=== PATIENT | male | born 1940 | race Caucasian/White ===

== ENCOUNTER 2016-07-07 08:57 | Emergency (ER) | payer MEDICARE ==
[2016-07-07 09:40] VITALS: BP 123/69
--- NOTE | 2016-07-07 10:57 | UC ---
Respiratory Complaint HPI - HPI Summary HPI Summary: The patient comes in today for: 1. Body aches, rhinitis, fatigue: Onset: two days ago. Palliative/provocative: Nothing makes his symptoms better; moving around makes the muscle aches worse. Quality: Aching. Region: General body. Severity:2/10 Time: Constant. Associated symptoms: Previous home treatment: Aleve did not help. Fevers: No temperature taken, but chills present. Rhinitis: Yellow, thick. Sinus pressure: Present. Cough: "Once in a while." Upper tooth pain: NOne. Chest pain: None. Dyspnea: None. * - History of Current Complaint Chief Complaint: UCGeneralIllness Stated Complaint: ACHY/HEADACHE/WEAK/SINUS Time Seen by Provider: 07/07/16 10:51 Hx Obtained From: Patient - Allergies/Home Medications Allergies/Adverse Reactions: Allergies Allergy/AdvReac Type Severity Reaction Status Date / Time Ciprofloxacin [From Cipro] Allergy Intermediate RASH, Verified 07/07/16 09:32 ITCHING Sulfa Antibiotics Allergy See Comment Verified 07/07/16 09:32 Home Medications: Home Medications Ibuprofen TAB* [Advil TAB*] 200 mg PO Q6H PRN 07/07/16 [History Confirmed ] PMH/Surg Hx/FS Hx/Imm Hx Previously Healthy: Yes Endocrine History Of: Denies: Diabetes, Thyroid Disease, Hyperthyroidism, Hypothyroidism, Dyslipidemia Cardiovascular History Of: Reports: Hypertension - HAS BEEN UP AND DOWN,NO MEDS Denies: Cardiac Disorders, Pacemaker/ICD, Myocardial Infarction, Congestive Heart Failure, Atrial Fibrillation, Deep Vein Thrombosis, Bleeding Disorders Respiratory History Of: Denies: COPD, Asthma, Bronchitis, Pneumonia, Pulmonary Embolism GI/ History Of: Denies: Gastroesophageal Reflux, Ulcer, Gastrointestinal Bleed, Gall Bladder Disease, Kidney Stones, Diverticulitis, Renal Disease, Urosepsis Neurological History Of: Denies: TIA, CVA, Dementia, Seizures, Migraine Psychological History Of: Denies: Anxiety, Depression, Bipolar Disorder, Schizophrenia, Post Traumatic Stress Disorder Cancer History Of: Denies: Lung Cancer, Colorectal Cancer, Breast Cancer, Prostate Cancer, Cervical Cancer Other History Of: Negative For: HIV, Hepatitis B, Hepatitis C, Anticoagulant Therapy - Surgical History Surgical History: Yes Surgery Procedure, Year, and Place: 1948 - Family History Known Family History: Negative: Cardiac Disease, Hypertension - Social History Occupation: Employed Full-time Alcohol Use: None Substance Use Type: None Smoking Status (MU): Former Smoker Type: Smokeless Tobacco When Did the Patient Quit Smoking/Using Tobacco: 45 YRS AGO - Immunization History Most Recent Influenza Vaccination: has not had Review of Systems Constitutional: Negative Skin: Negative Eyes: Negative ENT: Sore Throat, Nasal Discharge Respiratory: Cough Cardiovascular: Negative Gastrointestinal: Negative Genitourinary: Negative All Other Systems Reviewed And Are Negative: Yes Physical Exam Triage Information Reviewed: Yes Appearance: Well-Appearing, No Pain Distress, Thin Vital Signs: Initial Vital Signs Temp 98.8 F 07/07/16 09:34 Pulse 73 07/07/16 09:34 Resp 20 07/07/16 09:34 BP 123/69 07/07/16 09:34 Pulse Ox 97 07/07/16 09:34 Vital Signs Reviewed: Yes Eyes: Positive: Conjunctiva Clear. Negative: Discharge ENT: Positive: Hearing grossly normal. Negative: Pharyngeal erythema, Nasal congestion, Nasal drainage, TM bulging, TM dull, TM red, Tonsillar swelling, Tonsillar exudate Dental: Positive: Other: - Upper dentures, but worn, darkened teeth.. Negative : Gross Decay/Caries @, Dental Fracture @ Neck: Positive: Supple, Nontender, No Lymphadenopathy. Negative: Nuchal Rigidity Respiratory: Positive: Chest non-tender, Lungs clear, No respiratory distress, No accessory muscle use. Negative: Crackles, Wheezing Cardiovascular: Positive: RRR, No Murmur Abdomen Description: Positive: Nontender, No Organomegaly, Soft. Negative: Distended, Guarding Musculoskeletal: Positive: Strength Intact, ROM Intact Neurological: Positive: Alert, Muscle Tone Normal Psychological: Positive: Age Appropriate Behavior, Consolable Skin: Negative: rashes, breakdown UC Diagnostic Evaluation - Laboratory O2 Sat by Pulse Oximetry: 97 Respiratory Course/Dx - Differential Dx/Diagnosis Differential Diagnosis/HQI/PQRI: Asthma, Laryngitis, Sinusitis Provider Diagnoses: Sinusitis. Viral syndrome Discharge - Discharge Plan Condition: Stable Disposition: HOME Patient Education Materials: Sinusitis (ED), Viral Syndrome (ED) Referrals: Non Staff,Doctor [Primary Care Provider] - 1 Week (Please see your primary care provider in about a week to see how well you are doing. If you get worse, please be seen sooner.)
== END 2016-07-07 11:15 | disposition home or self-care (01) ==
LOC: UCCORT 08:57
DX: J32.9 Chronic sinusitis, unspecified (principal); B34.9 Viral infection, unspecified; Z88.3 Allergy status to other anti-infective agents; Z88.2 Allergy status to sulfonamides
CPT/HCPCS: 87502; 99212; G0463

== ENCOUNTER 2016-07-25 12:26 | Emergency (ER) | payer MEDICARE ==
[2016-07-25 14:21] VITALS: BP 136/78
--- NOTE | 2016-07-25 14:44 | UC ---
Throat Pain/Nasal Wilfred HPI - HPI Summary HPI Summary: complaint of nasal discharge, congestion and cough started 3 weeks ago cough with yellow sputum intermittent headaches constant pressure in forehead denies sore throat denies shortness of breath denies fever using alkaseltzer with some relief - History of Current Complaint Chief Complaint: UCRespiratory Stated Complaint: SINUS COMPLAINT Time Seen by Provider: 07/25/16 14:36 Hx Obtained From: Patient - Allergies/Home Medications Allergies/Adverse Reactions: Allergies Allergy/AdvReac Type Severity Reaction Status Date / Time Ciprofloxacin [From Cipro] Allergy Intermediate RASH, Verified 07/25/16 14:20 ITCHING Sulfa Antibiotics Allergy See Comment Verified 07/25/16 14:20 PMH/Surg Hx/FS Hx/Imm Hx Previously Healthy: Yes Endocrine History Of: Denies: Diabetes, Thyroid Disease, Hyperthyroidism, Hypothyroidism, Dyslipidemia Cardiovascular History Of: Reports: Hypertension - HAS BEEN UP AND DOWN,NO MEDS Denies: Cardiac Disorders, Pacemaker/ICD, Myocardial Infarction, Congestive Heart Failure, Atrial Fibrillation, Deep Vein Thrombosis, Bleeding Disorders Respiratory History Of: Denies: COPD, Asthma, Bronchitis, Pneumonia, Pulmonary Embolism GI/ History Of: Denies: Gastroesophageal Reflux, Ulcer, Gastrointestinal Bleed, Gall Bladder Disease, Kidney Stones, Diverticulitis, Renal Disease, Urosepsis Neurological History Of: Denies: TIA, CVA, Dementia, Seizures, Migraine Psychological History Of: Denies: Anxiety, Depression, Bipolar Disorder, Schizophrenia, Post Traumatic Stress Disorder Cancer History Of: Denies: Lung Cancer, Colorectal Cancer, Breast Cancer, Prostate Cancer, Cervical Cancer Other History Of: Negative For: HIV, Hepatitis B, Hepatitis C, Anticoagulant Therapy - Surgical History Surgical History: Yes Surgery Procedure, Year, and Place: appy 1948 - Family History Known Family History: Negative: Cardiac Disease, Hypertension, Diabetes - Social History Occupation: Retired Lives: With Family Alcohol Use: None Substance Use Type: None Smoking Status (MU): Former Smoker Type: Smokeless Tobacco When Did the Patient Quit Smoking/Using Tobacco: 45 YRS AGO - Immunization History Most Recent Influenza Vaccination: has not had Review of Systems Constitutional: Negative Skin: Negative Eyes: Negative ENT: Nasal Discharge Respiratory: Cough Cardiovascular: Negative Gastrointestinal: Negative Genitourinary: Negative Motor: Negative Neurovascular: Negative Musculoskeletal: Negative Neurological: Negative Psychological: Negative All Other Systems Reviewed And Are Negative: Yes Physical Exam Triage Information Reviewed: Yes Appearance: No Pain Distress, Well-Nourished Vital Signs: Initial Vital Signs Temp 98.3 F 07/25/16 14:18 Pulse 69 07/25/16 14:18 Resp 16 07/25/16 14:18 BP 136/78 07/25/16 14:18 Pulse Ox 100 07/25/16 14:18 Vital Signs Reviewed: Yes Eyes: Positive: Conjunctiva Clear ENT: Positive: Pharyngeal erythema, Nasal congestion, Nasal drainage, TM bulging , Other: - frontal sinus tenderness. Negative: TM red Neck: Positive: No Lymphadenopathy Respiratory: Positive: Lungs clear, Normal breath sounds, No respiratory distress Cardiovascular: Positive: RRR, No Murmur, Pulses Normal Abdomen Description: Positive: Nontender, Soft Bowel Sounds: Positive: Present Musculoskeletal: Positive: No Edema Neurological: Positive: Alert Psychological Exam: Normal Skin Exam: Normal Throat Pain/Nasal Course/Dx - Differential Dx/Diagnosis Differential Diagnosis/HQI/PQRI: Pharyngitis, Sinusitis, URI Provider Diagnoses: sinusitis Discharge - Discharge Plan Condition: Stable Disposition: HOME Prescriptions: DOXYcycline CAP(*) [DOXYcycline 100MG CAP(*)] 100 mg PO BID #20 cap Patient Education Materials: Sinusitis (ED) Referrals: Non Staff,Doctor [Primary Care Provider] - [facility] [place] [facility] [Outside] Additional Instructions: SINUSITIS What is Sinusitis? Sinusitis is inflammation or infection of the lining of the sinuses behind the bones in your cheeks or forehead. Sinusitis may occur following a common cold, flu, or other infection; allergies; a tooth infection that spreads to the sinuses; swimming in contaminated water; pressure changes in airplanes at high altitudes; violent sneezing or nose blowing or smoking or breathing other peoples smoke. Symptoms Might Include: Nasal Congestion Sneezing Watery eyes, eye irritation, or eye itching Headaches Pressure in the cheeks Wheezing Trouble smelling Sore throat and coughing may occur Treatment Recommendations: Take medicines as prescribed until completely gone. Drink plenty of fluids. Use saline nose spray to thin the mucous and help the sinuses drain. Use a vaporizer or humidifier. Apply warm compresses to the face or forehead several times a day for 10 to 20 minutes. Call Your Doctor or Return Here IF: Your pain increases during treatment. You develop a high temperature. You develop unusual swelling around the eyes. You have difficulty with your vision. You develop a severe headache, earache, or toothache. You develop increased fever or fever that does not respond to medication such as Tylenol?. You have difficulty breathing or catching your breath. You begin to have any other new symptoms that worry you.
== END 2016-07-25 15:10 | disposition home or self-care (01) ==
LOC: UCCORT 12:26
DX: J32.1 Chronic frontal sinusitis (principal); R05 Cough; Z87.891 Personal history of nicotine dependence; Z88.1 Allergy status to other antibiotic agents; Z88.2 Allergy status to sulfonamides
CPT/HCPCS: 99212; G0463

== ENCOUNTER 2018-03-15 09:57 | Emergency (ER) | payer MEDICARE ==
[2018-03-15] MEDS ORDERED: Tetan/Diph/Pertus SYR(Tdap)* 0.5 ML SYR(BOOSTRIX) use SYR IM ONE (10:26)
--- NOTE | 2018-03-15 10:59 | UC ---
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 Complains of pain at the right eyebrow and above the right eye. Denies any blurry vision or double vision. No LOC. Patient is able to recall all details. Patient denies any dizziness, weakness, numbness, nausea, or vomiting. - History Of Current Complaint Chief Complaint: UCSkin Stated Complaint: HEAD LAC Pain Intensity: 5 - Allergies/Home Medications Allergies/Adverse Reactions: Allergies Allergy/AdvReac Type Severity Reaction Status Date / Time ciprofloxacin [From Cipro] Allergy Rash And Verified 03/15/18 10:12 Itching Sulfa (Sulfonamide Allergy See Comment Verified 03/15/18 10:12 Antibiotics) Home Medications: Home Medications Sinus Medication 1 liq PO DAILY PRN 03/15/18 [History] PMH/Surg Hx/FS Hx/Imm Hx - Additional Past Medical History Additional PMH: No past medical history Previously Healthy: Yes Other History Of: Negative For: HIV, Hepatitis B, Hepatitis C, Anticoagulant Therapy - Surgical History Surgical History: Yes Surgery Procedure, Year, and Place: 1948 - Family History Known Family History: Negative: Cardiac Disease, Hypertension, Diabetes - Social History Alcohol Use: None Substance Use Type: None Smoking Status (MU): Current Every Day Smoker Type: Smokeless Tobacco Amount Used/How Often: 7 times daily When Did the Patient Quit Smoking/Using Tobacco: 45 YRS AGO - Immunization History Most Recent Influenza Vaccination: has not had Most Recent Tetanus Shot: unknown Review of Systems Constitutional: Negative Skin: Bruising, Other - Bruising around the bony prominences of the right eye Eyes: Negative ENT: Negative Respiratory: Negative Cardiovascular: Negative Gastrointestinal: Negative Motor: Negative Neurovascular: Negative Musculoskeletal: Negative Neurological: Negative Psychological: Negative All Other Systems Reviewed And Are Negative: Yes Physical Exam - Summary Physical Exam Summary: Gen: alert, in no acute distress HEENT: EOMI, normocephalic, dried blood around the right eyebrow, tenderness along the bony prominences of the right orbit Neck: supple, no masses. No posterior neck tenderness. Normal range of motion of the neck. CV: Normal s1 s2, no murmurs Resp: normal breath sounds b/l GI: no tenderness, no masses Musculoskeletal: normal ROM all 4 extremities Neuro: no obvious focal neurological deficits. No diplopia. Normal extraocular movements.. Skin: no rash Lymph: no lymphadenopathy Psych: appropriate affect, oriented Triage Information Reviewed: Yes Vital Signs: Initial Vital Signs Temp 37.2 C 03/15/18 10:14 Pulse 93 03/15/18 10:14 Resp 18 03/15/18 10:14 BP 137/72 03/15/18 10:14 Pulse Ox 97 03/15/18 10:14 Procedures - Laceration/Wound Repair 1 Location: head Description: Linear Anesthesia: Local, 1.0%, Lido Length, Depth and Shape: 1cm linear, 2mm deep Irrigated w/ Saline (ccs): 250 Laceration/Wound Explored: clean Closure: Single Layer Suture Type: Prolene Number of Sutures: 3 - 6-0 prolene Layer Closure?: No Sterile Dressing Applied?: Yes Head Injury Course/Dx - Course Course Of Treatment: Patient tolerated procedure well, instructed to return in 5 days for suture removal. CT negative for any traumatic injuries. Agrees to and understands discharge instructions. - Differential Dx/Diagnosis Provider Diagnoses: right eyebrow laceration Discharge - Sign-Out/Discharge Documenting (check all that apply): Patient Departure All imaging exams completed and their final reports reviewed: Yes - Discharge Plan Condition: Stable Disposition: HOME Patient Education Materials: Care For Your Stitches (DC) Print Language: MALAGASY Referrals: No Primary Care Phys,NOPCP [Primary Care Provider] - Additional Instructions: PLEASE DO NOTHING WITH WOUND FOR THE FIRST 24 HOURS PLEASE APPLY BACITRACIN TWICE DAILY WITH CLEAN DRESSINGS PLEASE RETURN IN 5 DAYS FOR SUTURE REMOVAL PLEASE RETURN FOR ANY WORSENING OR CONCERNING SYMPTOMS - Billing Disposition and Condition Condition: STABLE Disposition: Home
--- NOTE | 2018-03-15 11:20 | RAD ---
Indication: Head and face injury. CT of the brain was performed without IV contrast. Comparison is made with previous exam dated May 21, 2013. Ventricular structures are midline. No midline shift is noted. Central and cortical atrophy is noted. There is no evidence of intracranial mass or hemorrhage. Some mild periventricular hypodensity is noted consistent with microvascular change. Mastoid air cells and paranasal sinuses are otherwise unremarkable. 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 No intracranial mass or hemorrhage is noted.
--- NOTE | 2018-03-15 11:28 | RAD ---
Indication: Facial injury. CT of the facial bones was obtained in the axial plane. Coronal and sagittal reconstructed images were obtained. Mastoid air cells are well aerated. No basilar skull fracture is noted. Ethmoid air cells are unremarkable. The nasal bones and nasal arch are intact. The zygomatic arch temporomandibular joint sinuses are unremarkable. The maxilla including pterygoid plates are intact. IMPRESSION: No fracture of the facial bones is identified. The mandible is not completely imaged and clinical correlation is suggested.
[2018-03-15] MEDS ORDERED: Lidocaine 1% MPF* 2 ML VIAL INJ ONE (11:53)
[2018-03-15 12:47] VITALS: BP 144/92
== END 2018-03-15 13:20 | disposition home or self-care (01) ==
LOC: UCCORT 09:57
DX: S01.111A Laceration without foreign body of right eyelid and periocular area, initial encounter (principal); W31.9XXA Contact with unspecified machinery, initial encounter; Y93.89 Activity, other specified; Y92.69 Other specified industrial and construction area as the place of occurrence of the external cause; Y99.0 Civilian activity done for income or pay; Z88.1 Allergy status to other antibiotic agents; F17.210 Nicotine dependence, cigarettes, uncomplicated
CPT/HCPCS: 12011; 70450; 70486; 90471; 90715; 99211; G0463

== ENCOUNTER 2018-06-02 11:46 | Emergency (ER) | payer MEDICARE ==
[2018-06-02 12:12] VITALS: BP 149/83
--- NOTE | 2018-06-02 12:23 | UC ---
Throat Pain/Nasal Wilfred HPI - HPI Summary HPI Summary: 77-year-old male 77-year-old male comes to clinic today with chief complaint of runny nose sinus pressure 3 weeks. The rhinorrhea is yellow and green. Had some fevers. No complaint of cough or chest congestion. He's tried Lila- [place] plus and has not helped. - History of Current Complaint Chief Complaint: UCRespiratory Stated Complaint: CONGESTION,COUGH Time Seen by Provider: 06/02/18 12:10 Pain Intensity: 0 - Allergies/Home Medications Allergies/Adverse Reactions: Allergies Allergy/AdvReac Type Severity Reaction Status Date / Time ciprofloxacin [From Cipro] Allergy Rash And Verified 06/02/18 12:08 Itching Sulfa (Sulfonamide Allergy See Comment Verified 06/02/18 12:08 Antibiotics) Home Medications: Home Medications Chlorphenir/Phenyleph/Aspirin [Lila-[place] Plus Cold 2-7.8-325 mg] 1 tab PO ONCE 06/02/18 [History Confirmed 06/02/18] PMH/Surg Hx/FS Hx/Imm Hx Previously Healthy: Yes Other History Of: Negative For: HIV, Hepatitis B, Hepatitis C, Anticoagulant Therapy - Surgical History Surgical History: Yes Surgery Procedure, Year, and Place: 1948 - Family History Known Family History: Negative: Cardiac Disease, Hypertension, Diabetes - Social History Alcohol Use: None Substance Use Type: None Smoking Status (MU): Current Every Day Smoker Type: Smokeless Tobacco Amount Used/How Often: 7 times daily When Did the Patient Quit Smoking/Using Tobacco: 45 YRS AGO - Immunization History Most Recent Influenza Vaccination: has not had Most Recent Tetanus Shot: unknown Review of Systems All Other Systems Reviewed And Are Negative: Yes Constitutional: Positive: Fever Skin: Positive: Negative Eyes: Positive: Negative ENT: Positive: Nasal Discharge, Sinus Congestion, Sinus Pain/Tenderness Respiratory: Positive: Negative Cardiovascular: Positive: Negative Gastrointestinal: Positive: Negative Motor: Positive: Negative Neurovascular: Positive: Negative Musculoskeletal: Positive: Negative Neurological: Positive: Negative Psychological: Positive: Negative Is Patient Immunocompromised?: No Physical Exam Triage Information Reviewed: Yes Appearance: No Pain Distress, Well-Nourished, Ill-Appearing - MILD Vital Signs: Initial Vital Signs Temp 98.6 F 06/02/18 12:09 Pulse 68 06/02/18 12:09 Resp 20 06/02/18 12:09 BP 149/83 06/02/18 12:09 Pulse Ox 100 06/02/18 12:09 Vital Signs Reviewed: Yes Eye Exam: Normal Eyes: Positive: Conjunctiva Clear ENT: Positive: Pharynx normal, Nasal congestion, Nasal drainage, TMs normal Neck exam: Normal Neck: Positive: Supple Respiratory: Positive: Lungs clear, Normal breath sounds, No respiratory distress Cardiovascular: Positive: RRR Musculoskeletal Exam: Normal Musculoskeletal: Positive: Strength Intact, ROM Intact Neurological Exam: Normal Neurological: Positive: Alert, Muscle Tone Normal Psychological Exam: Normal Psychological: Positive: Age Appropriate Behavior Skin Exam: Normal Throat Pain/Nasal Course/Dx - Differential Dx/Diagnosis Provider Diagnosis: Sinusitis Discharge - Sign-Out/Discharge Documenting (check all that apply): Patient Departure All imaging exams completed and their final reports reviewed: No Studies - Discharge Plan Condition: Stable Disposition: HOME Prescriptions: Amoxicillin/Clavulanate TAB* [Augmentin TAB 875*] 875 mg PO BID #20 tab Patient Education Materials: Sinusitis (ED) Referrals: [facility] [place] [facility] [Outside] Additional Instructions: FOLLOW UP WITH YOUR DOCTOR IF NOT COMPLETELY IMPROVED. GET RECHECKED FOR ANY WORSENING OF YOUR CONDITION OR QUESTIONS OR CONCERNS. - Billing Disposition and Condition Condition: STABLE Disposition: Home
--- NOTE | 2018-06-03 14:27 | UC ---
- Progress Note Progress Note: PT states augmentin causing dysuria - pt took one dose and develop urinary burning. Pt states hasn't taken any addition ad sx resolved pt requesting different abx for sinusitis pt aware should have urine checked - unusual side effect Will change Rx to Doxy pt if not improvement, return sx, fever, pain,hematuria should be checked by PCP , UC or ED RN to discuss with pt Course/Dx - Diagnoses Provider Diagnoses: Sinusitis Discharge - Sign-Out/Discharge Documenting (check all that apply): Post-Discharge Follow Up All imaging exams completed and their final reports reviewed: No Studies - Discharge Plan Condition: Stable Disposition: HOME Prescriptions: DOXYcycline CAP(*) [DOXYcycline 100MG CAP(*)] 100 mg PO BID #20 cap Patient Education Materials: Sinusitis (ED) Referrals: [facility] [place] [facility] [Outside] Additional Instructions: FOLLOW UP WITH YOUR DOCTOR IF NOT COMPLETELY IMPROVED. GET RECHECKED FOR ANY WORSENING OF YOUR CONDITION OR QUESTIONS OR CONCERNS. - Billing Disposition and Condition Condition: STABLE Disposition: Home
== END 2018-06-02 12:33 | disposition home or self-care (01) ==
LOC: UCCORT 11:46
DX: J32.9 Chronic sinusitis, unspecified (principal); Z88.1 Allergy status to other antibiotic agents; Z88.2 Allergy status to sulfonamides; F17.210 Nicotine dependence, cigarettes, uncomplicated
CPT/HCPCS: 99212; G0463

== ENCOUNTER 2019-01-18 13:50 | Emergency (ER) | payer MEDICARE ==
[2019-01-18] MEDS ORDERED: cefTRIAXone VIAL(*) 1,000 MG in NS 0.9% 50 ML* 50 ML IVPB ONE (15:40)
[2019-01-18] MEDS ORDERED: cefTRIAXone VIAL(*) 1,000 MG VIAL ONE (15:48)
--- NOTE | 2019-01-18 15:53 | UC ---
Respiratory Complaint HPI - HPI Summary HPI Summary: 77 yo male with the onset of cough (productive) x 6 weeks He did not feel ill until yesterday F/C, headache and myalgias (states he hurts from head to toe) no n/v/d no CP or SOB - History of Current Complaint Chief Complaint: UCGeneralIllness Stated Complaint: BODY ACHES,CHILLS,CONGESTION Time Seen by Provider: 01/18/19 15:33 Hx Obtained From: Patient Onset/Duration: Lasting Weeks, Worse Since - past 24 hours Timing: Constant Severity Initially: Mild Severity Currently: Moderate Pain Intensity: 7 Pain Scale Used: 0-10 Numeric Character: Cough: Productive Aggravating Factors: Nothing Associated Signs And Symptoms: Positive: Fever - today, Chills - today, Nasal Congestion, Sinus Discomfort. Negative: Dyspnea, Pleuritic Chest Pain, Wheezing , Hemoptysis, Dizziness, Calf Pain, Calf Swelling, Edema, URI, Hoarseness - Allergies/Home Medications Allergies/Adverse Reactions: Allergies Allergy/AdvReac Type Severity Reaction Status Date / Time ciprofloxacin [From Cipro] Allergy Rash And Verified 06/02/18 12:08 Itching Sulfa (Sulfonamide Allergy See Comment Verified 06/02/18 12:08 Antibiotics) Home Medications: Home Medications Otc Cough Med. PRN 01/18/19 [History] Saw [place] Fruit [Saw [place]] 450 mg PO DAILY 01/18/19 [History Confirmed ] PMH/Surg Hx/FS Hx/Imm Hx Previously Healthy: Yes Respiratory History: Pneumonia Other History Of: Negative For: HIV, Hepatitis B, Hepatitis C, Anticoagulant Therapy - Surgical History Surgical History: Yes Surgery Procedure, Year, and Place: appy 1948 - Family History Known Family History: Negative: Cardiac Disease, Hypertension, Diabetes - Social History Alcohol Use: None Substance Use Type: None Smoking Status (MU): Current Every Day Smoker Type: Smokeless Tobacco Amount Used/How Often: 7 times daily When Did the Patient Quit Smoking/Using Tobacco: 45 YRS AGO Household Exposure Type: Cigarettes - Immunization History Most Recent Influenza Vaccination: has not had Most Recent Tetanus Shot: unknown Review of Systems All Other Systems Reviewed And Are Negative: Yes Constitutional: Positive: Fever, Chills, Fatigue ENT: Positive: Negative Respiratory: Positive: Cough Cardiovascular: Positive: Negative Gastrointestinal: Positive: Negative Genitourinary: Positive: Negative Motor: Positive: Negative Neurovascular: Positive: Negative Musculoskeletal: Positive: Myalgia Neurological: Positive: Negative Psychological: Positive: Negative Physical Exam Triage Information Reviewed: Yes Appearance: Well-Appearing, No Pain Distress, Well-Nourished, Thin Vital Signs: Initial Vital Signs Temp 100.1 F 01/18/19 14:38 Pulse 79 01/18/19 14:38 Resp 24 01/18/19 14:38 BP 129/73 01/18/19 14:38 Pulse Ox 97 01/18/19 14:38 Vital Signs Reviewed: Yes Eyes: Positive: Conjunctiva Clear ENT: Positive: Hearing grossly normal. Negative: Pharyngeal erythema, Nasal congestion, Nasal drainage, Trismus, Muffled voice, Hoarse voice, Sinus tenderness Dental Exam: Other - upper dentures Neck: Positive: Supple, Nontender, No Lymphadenopathy Respiratory: Positive: No respiratory distress, No accessory muscle use, Rhonchi Cardiovascular: Positive: RRR, No Murmur Musculoskeletal: Positive: ROM Intact, No Edema Neurological: Positive: Alert Psychological Exam: Normal Skin Exam: Normal Diagnostics - Radiology No standard instances Radiology Interpretation Completed By: Radiologist Summary of Radiographic Findings: NAD Re-Evaluation - Re-Evaluation Second Eval Re-Evaluation Time: 17:15 Change: Improved - myalgias gone Respiratory Course/Dx - Differential Dx/Diagnosis Provider Diagnosis: Acute bronchitis, Acute sinusitis Discharge - Sign-Out/Discharge Documenting (check all that apply): Patient Departure All imaging exams completed and their final reports reviewed: Yes - Discharge Plan Condition: Stable Disposition: HOME Patient Education Materials: Acute Bronchitis (ED), Sinusitis (ED) Referrals: No Primary Care Phys,NOPCP [Primary Care Provider] - - Billing Disposition and Condition Condition: STABLE Disposition: Home
[2019-01-18 17:13] VITALS: BP 135/72
== END 2019-01-18 17:30 | disposition home or self-care (01) ==
LOC: UCCORT 13:50 → EDBD 13:50 → UCCORT 17:30
DX: J98.01 Acute bronchospasm (principal); J01.90 Acute sinusitis, unspecified; Z88.1 Allergy status to other antibiotic agents; Z88.2 Allergy status to sulfonamides; F17.290 Nicotine dependence, other tobacco product, uncomplicated
CPT/HCPCS: 71046; 96365; 99212; G0463; J0696

== ENCOUNTER 2019-09-05 12:30 | Emergency (ER) | payer MEDICARE ==
[2019-09-05 13:39] VITALS: BP 139/76
[2019-09-05 14:03] LABS: Influenza A Molecular Negative (Negative); Influenza B Molecular Negative (Negative)
--- NOTE | 2019-09-05 14:13 | ED ---
Influenza-Like Illness - HPI Summary HPI Summary: 79 yo WM p/w severe chills last night associated with bodyaches and cough, denies SOB, sore throat, fevers had mild cough with sputum last night. - History of Current Complaint Chief Complaint: UCGeneralIllness Time Seen by Provider: 09/05/19 13:51 Hx Obtained From: Patient Onset/Duration: Sudden Onset Severity: Moderate Associated Signs & Symptoms: Fever, Myalgia, Cough - Risk Factors Influenza Risk Factors: Age 65 y/o or Older - Allergy/Home Medications Allergies/Adverse Reactions: Allergies Allergy/AdvReac Type Severity Reaction Status Date / Time ciprofloxacin [From Cipro] Allergy Rash And Verified 09/05/19 13:38 Itching Sulfa (Sulfonamide Allergy See Comment Verified 09/05/19 13:38 Antibiotics) Home Medications: Home Medications Azithromycin TAB* [Zithromax TAB (Z-[place]) 250 mg #6 tabs] 2 tab PO .TODAY, THEN 1 DAILY #1 [place] 09/05/19 [Rx] Ibuprofen TAB* [Advil TAB*] 200 mg PO ONCE PRN 09/05/19 [History Confirmed 09/04] Oseltamivir CAP* [Tamiflu CAP*] 75 mg PO BID 5 Days #10 cap 09/05/19 [Rx] PMH/Surg Hx/FS Hx/Imm Hx Previously Healthy: Yes Endocrine/Hematology History: Denies: Hx Anticoagulant Therapy, Hx Diabetes, Hx Thyroid Disease Cardiovascular History: Reports: Hx Hypertension - HAS BEEN UP AND DOWN,NO MEDS Denies: Hx Congestive Heart Failure, Hx Deep Vein Thrombosis, Hx Myocardial Infarction, Hx Pacemaker/ICD Respiratory History: Denies: Hx Asthma, Hx Chronic Obstructive Pulmonary Disease (COPD), Hx Lung Cancer, Hx Pneumonia, Hx Pulmonary Embolism GI History: Denies: Hx Gall Bladder Disease, Hx Gastrointestinal Bleed, Hx Ulcer, Hx Urosepsis History: Denies: Hx Kidney Stones, Hx Renal Disease Neurological History: Denies: Hx Dementia, Hx Migraine, Hx Seizures, Hx Transient Ischemic Attacks (TIA) Psychiatric History: Denies: Hx Anxiety, Hx Depression, Hx Schizophrenia, Hx Bipolar Disorder - Surgical History Surgery Procedure, Year, and Place: appy 194 Infectious Disease History: No Infectious Disease History: Denies: Hx Clostridium Difficile, Hx Hepatitis, Hx Human Immunodeficiency Virus (HIV), Hx of Known/Suspected MRSA, Hx Shingles, Hx Tuberculosis, Hx Known/ Suspected VRE, Hx Known/Suspected VRSA, History Other Infectious Disease, Traveled Outside the [place] in Last 30 Days - Family History Known Family History: Negative: Cardiac Disease, Hypertension, Diabetes - Social History Alcohol Use: None Substance Use Type: Reports: None Smoking Status (MU): Current Every Day Smoker Type: Smokeless Tobacco Amount Used/How Often: 7 times daily Review of Systems Positive: Chills, Fatigue Eyes: Negative Positive: Epistaxis Cardiovascular: Negative Positive: Cough. Negative: Shortness Of Breath Gastrointestinal: Negative Genitourinary: Negative Musculoskeletal: Negative Skin: Negative Neurological/Mental Status: Negative Positive: Headache Psychological: Normal All Other Systems Reviewed And Are Negative: Yes Physical Exam - Summary Physical Exam Summary: Vital Signs Reviewed: Yes Appearance: Positive: No Pain Distress Skin: Positive: Warm Head/Face: Positive: Normal Head/Face Inspection Eyes: Positive: Normal ENT: Positive: Normal ENT inspection Dental: Negative: Cervical Lymphadenopathy Neck: Positive: Supple Respiratory/Lung Sounds: Positive: mild crackles bases left >right Cardiovascular: Positive: Normal, RRR, S1, S2 Abdomen Description: Positive: Nontender Musculoskeletal: Positive: Normal Neurological: Positive: Normal Psychiatric: Positive: Normal Vital Signs On Initial Exam: Initial Vitals Temp Pulse Resp BP Pulse Ox 36.9 C 74 22 139/76 95 09/05/19 13:36 09/05/19 13:36 09/05/19 13:36 09/05/19 13:36 09/05/19 13:36 Diagnostics - Vital Signs Vital Signs Temp Pulse Resp BP Pulse Ox 09/05/19 13:36 36.9 C 74 22 139/76 95 - Laboratory Lab Results: Lab Results 09/05/19 Range/Units 13:51 Influenza A (Rapid) Negative (Negative) Influenza B (Rapid) Negative (Negative) Lab Statement: Any lab studies that have been ordered have been reviewed, and results considered in the medical decision making process. Flu Symptom Course/Dx - Course Assessment/Plan: rapid flu neg but will tx with tamiflu and abx as he has flu- like illness and mild crackles in left base, will empirically cover for PNA, pt has NO SOB or subjective fevers and NO exposure to covid 19 - Diagnoses Provider Diagnoses: PNA (pneumonia), Flu-like symptoms Discharge ED - Sign-Out/Discharge Documenting (check all that apply): Patient Departure All imaging exams completed and their final reports reviewed: No Studies - Discharge Plan Condition: Stable Disposition: HOME Prescriptions: Azithromycin TAB* [Zithromax TAB (Z-[place]) 250 mg #6 tabs] 2 tab PO .TODAY, THEN 1 DAILY #1 [place] Oseltamivir CAP* [Tamiflu CAP*] 75 mg PO BID 5 Days #10 cap Patient Education Materials: Viral Syndrome (ED) Referrals: No Primary Care Phys,NOPCP [Primary Care Provider] - Additional Instructions: pleas take medication as directed and go to ED if symptoms worsen - Billing Disposition and Condition Condition: STABLE Disposition: Home
== END 2019-09-05 14:36 | disposition home or self-care (01) ==
LOC: UCCORT 12:30
DX: J18.9 Pneumonia, unspecified organism (principal); R04.0 Epistaxis; M79.10 Myalgia, unspecified site; I10 Essential (primary) hypertension; F17.290 Nicotine dependence, other tobacco product, uncomplicated; Z88.1 Allergy status to other antibiotic agents; Z88.2 Allergy status to sulfonamides
CPT/HCPCS: 99212; G0463